=== PATIENT | female | born 1945 | race American Indian/Alaskan Native ===

== ENCOUNTER 2021-07-25 16:17 | Emergency (ER) | payer MEDICARE ==
[2021-07-25] MEDS ORDERED: EPINEPHrine/PF 1 MG/1 ML INJ SUB-Q ONE (16:21)
[2021-07-25] MEDS ORDERED: methylPREDNISolone Sod Succinate 125 MG/2 ML INJ IV ONE (16:22)
[2021-07-25] MEDS ORDERED: FAMOTIDINE 20 MG/2 ML INJ IV ONE (16:22)
[2021-07-25] MEDS ORDERED: diphenhydrAMINE 50 MG/ML VIAL IV ONE (16:22)
[2021-07-25] MEDS ORDERED: SODIUM CHLORIDE 0.9% 1000 ML 1,000 ML IV ONE (16:24)
--- NOTE | 2021-07-25 16:46 | Emergency Department Report ---
HPI - General Chief Complaint: Allergic Reaction Time Seen by Provider: 07/25/21 16:40 - HPI HPI: Patient is a 75-year-old female presenting to the emergency department for allergic reaction. In triage patient became unresponsive. She was brought to exam room 19 emergently. She is accompanied by her who states that she called out to him after being stung by unknown insect while on the porch. States she later developed hives and swelling in her throat. She took Benadryl oral and topically along with a cold shower which did not seem to help. No past history of anaphylaxis. ED Past Medical Hx - Past Medical History Hx Hypertension: Yes Additional medical history: High Cholesterol - Social History Smoking Status: Never Smoker Substance Use Type: Alcohol (rarely) - Medications Home Medications: Home Medications Medication Instructions Recorded Confirmed Last Taken Type HYDROcodone/APAP 5-325 [[place] 1 - 2 each PO Q6HR PRN #14 tablet 05/01/16 Unknown Rx 5/325] Ibuprofen [Motrin 800 MG tab] 800 mg PO Q8HR PRN #20 tablet 05/01/16 Unknown Rx Promethazine [Phenergan TAB] 25 mg PO Q6HR PRN #20 tab 05/01/16 Unknown Rx Promethazine [Phenergan] 25 mg NV Q6HR PRN #10 supp.rect 05/01/16 Unknown Rx levoFLOXacin [Levaquin TAB] 500 mg PO QDAY #10 tablet 05/01/16 Unknown Rx EPINEPHrine [Epipen] 0.3 mg IJ ONCE #1 07/25/21 Unknown Rx ED Review of Systems ROS: Stated complaint: ALLERGIC REACTION Other details as noted in HPI Comment: All other systems reviewed and negative Constitutional: denies: chills, fever Respiratory: shortness of breath, wheezing. denies: cough Cardiovascular: denies: chest pain, palpitations Gastrointestinal: denies: abdominal pain, nausea, diarrhea Musculoskeletal: denies: back pain, joint swelling, arthralgia Skin: rash, change in color Neurological: denies: headache, weakness, paresthesias Psychiatric: denies: anxiety, depression Physical Exam - Physical Exam Vital Signs: Vital Signs 07/25/21 16:20 Temperature 97 F L Pulse Rate 102 H Respiratory 18 Rate Blood Pressure 76/39 [Left] O2 Sat by Pulse 99 Oximetry General: General: Patient is in distress, appears confused/altered. Patient nonverbal. Head: Normocephalic, atraumatic Eyes: PERRLA, EOMI ENT: Normal oropharynx, Neck: Supple, nontender, no JVD, FROM Cardiac: Regular rate, regular rhythm, no murmurs, gallops or rubs Respiratory: Mild expiratory wheezing, no stridor present Abdomen: Soft, nontender, nondistended Skin: Diffuse urticarial rash Neurological: Cranial nerves II through XII grossly intact Psych: Normal mood and affect ED Course Vital Signs 07/25/21 16:20 Temperature 97 F L Pulse Rate 102 H Respiratory 18 Rate Blood Pressure 76/39 [Left] O2 Sat by Pulse 99 Oximetry ED Medical Decision Making - Medical Decision Making Patient given 0.3 mg of IM epinephrine along with Solu-Medrol, Pepcid and Benadryl. She appears to be responding well and is now speaking. Patient observed in the emergency department for an hour. On reassessment she is back to baseline and states he is ready to go home. She and her are both nurses. Will discharge home with Rx for EpiPen. Critical care attestation.: If time is entered above; I have spent that time in minutes in the direct care of this critically ill patient, excluding procedure time. ED Disposition Clinical Impression: Anaphylactic reaction Disposition: 01 HOME / SELF CARE / HOMELESS Is pt being admited?: No Does the pt Need Aspirin: No Condition: Stable Instructions: Anaphylactic Reaction, Adult Time of Disposition: 17:52
[2021-07-25 18:32] VITALS: BP 156/57
== END 2021-07-25 18:32 | disposition home or self-care (01) ==
LOC: ED 16:17
DX: T78.2XXA Anaphylactic shock, unspecified, initial encounter (principal); I10 Essential (primary) hypertension; F10.20 Alcohol dependence, uncomplicated
CPT/HCPCS: 96361; 96372; 96374; 96375; 99282; J0171; J1200; J2930; J3490; J7030